=== PATIENT | male | born 1980 | race Caucasian/White ===

== ENCOUNTER 2016-10-08 10:08 | Inpatient (IN) | payer BC ==
--- NOTE | 2016-10-08 10:29 | ER Document Report ---
ED General - General Chief Complaint: Abnormal Lab Results Stated Complaint: POSSIBLE BLOOD SUGAR LEVEL INCREASE Mode of Arrival: Ambulatory Information source: Patient Notes: 36-year-old male history of hypertension who had blood work done at [facility] yesterday was called by myself this morning with critical lab values of glucose 810, sodium 119 and creatinine 3.14, she was instructed to come to the emergency department for evaluation, he admits increased urination not feeling well over the past 2 weeks TRAVEL OUTSIDE OF THE [place] IN LAST 30 DAYS: No - HPI Onset: Other - 2 week duration Onset/Duration: Persistent Quality of pain: Achy Severity: Mild Pain Level: 1 Associated symptoms: Body/muscle aches Exacerbated by: Denies Relieved by: Denies Similar symptoms previously: Yes Recently seen / treated by doctor: Yes - Related Data Allergies/Adverse Reactions: No Known Allergies Allergy (Verified 10/08/16 10:17) Past Medical History - Social History Smoking Status: Never Smoker Cigarette use (# per day): No Chew tobacco use (# tins/day): No Smoking Education Provided: No Family History: Other Patient has suicidal ideation: No Patient has homicidal ideation: No - Past Medical History Cardiac Medical History: Reports: Hx Hypertension Renal/ Medical History: Denies: Hx Peritoneal Dialysis GI Medical History: Reports: Hx Gastroesophageal Reflux Disease, Hx Ulcer - Immunizations Hx Diphtheria, Pertussis, Tetanus Vaccination: No Review of Systems - Review of Systems Notes: REVIEW OF SYSTEMS: CONSTITUTIONAL : Denies fever, chills, or sweats. Denies recent illness. EENT: Denies eye, ear, throat, or mouth pain or symptoms. Denies nasal or sinus congestion or discharge. Denies throat, tongue, or mouth swelling or difficulty swallowing. CARDIOVASCULAR: Denies chest pain. Denies palpitations or racing or irregular heart beat. Denies ankle edema. RESPIRATORY: Denies cough, cold, or chest congestion. Denies shortness of breath, difficulty breathing, or wheezing. GASTROINTESTINAL: Denies abdominal pain or distention. Denies nausea, vomiting , or diarrhea. Denies blood in vomitus, stools, or per rectum. Denies black, tarry stools. Denies constipation. GENITOURINARY: Admits to increased urination MUSCULOSKELETAL: Denies back or neck pain or stiffness. Denies joint pain or swelling. SKIN: Denies rash, lesions or sores. HEMATOLOGIC : Denies easy bruising or bleeding. LYMPHATIC: Denies swollen, enlarged glands. NEUROLOGICAL: Admits to fatigue PSYCHIATRIC: Denies anxiety or stress. Denies depression, suicidal ideation, or homicidal ideation. ALL OTHER SYSTEMS REVIEWED AND NEGATIVE. Dictation was performed using oNoise voice recognition software PHYSICAL EXAMINATION: GENERAL: Well-appearing, well-nourished and in no acute distress. HEAD: Atraumatic, normocephalic. EYES: Pupils equal round and reactive to light, extraocular movements intact, sclera anicteric, conjunctiva are normal. ENT: Nares patent, oropharynx clear without exudates. Moist mucous membranes. NECK: Normal range of motion, supple without lymphadenopathy LUNGS: Breath sounds clear to auscultation bilaterally and equal. No wheezes rales or rhonchi. HEART: Regular rate and rhythm without murmurs ABDOMEN: Soft, nontender, nondistended abdomen. No guarding, no rebound. No masses appreciated. Musculoskeletal: Normal range of motion, no pitting or edema. No cyanosis. NEUROLOGICAL: Cranial nerves grossly intact. Normal speech, normal gait. Normal sensory, motor exams PSYCH: Normal mood, normal affect. SKIN: Warm, Dry, normal turgor, no rashes or lesions noted. Physical Exam - Vital signs Vitals: Temp Pulse Resp BP Pulse Ox 98.2 F 72 16 93/61 L 98 10/08/16 10:19 10/08/16 10:19 10/08/16 10:19 10/08/16 10:19 10/08/16 10:19 Course - Re-evaluation Re-evalutation: 10/08/16 10:28 Patient noted to have abnormal lab values, 10/08/16 11:53 Patient is noted to have blood sugar of 957 with acute renal failure, fluids insulin a been ordered. Patient will be admitted to hospitalist service - Vital Signs Vital signs: Temp Pulse Resp BP Pulse Ox 98.2 F 72 16 93/61 L 98 10/08/16 10:19 10/08/16 10:19 10/08/16 10:19 10/08/16 10:19 10/08/16 10:19 - Laboratory Result Diagrams: 10/08/16 10:48 10/08/16 10:48 Laboratory results interpreted by me: 10/08/16 10/08/16 10/08/16 10:48 10:48 10:48 RBC 4.07 L Hgb 13.1 L Sodium 122.3 L Chloride 81 L Carbon Dioxide 18 L Anion Gap 23 H BUN 55 H Creatinine 2.51 H Est GFR ( Amer) 35 L Est GFR (Non-Af Amer) 29 L Glucose 957 H* Hemoglobin A1c % > 14.0 H Calcium 10.5 H Total Bilirubin 1.9 H Direct Bilirubin 0.8 H Critical Care Note - Critical Care Note Total time excluding time spent on procedures (mins): 34 Comments: 34 minutes of critical care time spent in direct contact evaluating and reevaluating the patient, treating symptoms, reviewing labs and studies and speaking with family and consultants excluding any procedures Discharge - Discharge Clinical Impression: Severe diabetic hypoglycemia, Hyponatremia, Acute renal insufficiency Condition: Serious Disposition: ADMITTED INPATIENT Admitting Provider: Hospitalist Unit Admitted: Telemetry
[2016-10-08 11:04] LABS: ABSOLUTE BASOPHILS # (AUTO) 0.1 10^3/uL (0.0-0.2); ABSOLUTE EOSINOPHILS # (AUTO) 0.1 10^3/uL (0.0-0.6); ABSOLUTE LYMPHOCYTES (AUTO) 1.6 10^3/uL (0.5-4.7); ABSOLUTE MONOCYTES (AUTO) 0.5 10^3/uL (0.1-1.4); ABSOLUTE NEUT (AUTO) 2.8 10^3/uL (1.7-8.2); BASOPHILS % (AUTO) 1.7 % (0-2); EOSINOPHILS % (AUTO) 1.4 % (0-6); HEMATOCRIT 38.2 % (37.9-51.0); HEMOGLOBIN 13.1 g/dL (13.5-17.0); HGB HCT DIFFERENCE 1.1; LYMPHOCYTES % (AUTO) 32.2 % (13-45); MEAN CORPUSCULAR HEMOGLOBIN 32.3 pg (27.0-33.4); MEAN CORPUSCULAR HGB CONC 34.4 g/dL (32.0-36.0); MEAN CORPUSCULAR VOLUME 94 fl (80-97); MONOCYTES % (AUTO) 9.4 % (3-13); RED BLOOD COUNT 4.07 10^6/uL (4.35-5.55); RED CELL DISTRIBUTION WIDTH 12.3 % (11.5-14.0); SEGMENTED NEUTROPHILS % (AUTO) 55.3 % (42-78); VENOUS BLOOD BASE EXCESS -2.5 mmol/L; VENOUS BLOOD HCO3 22.9 mmol/L (20-32); VENOUS BLOOD PCO2 41.9 mmHg (35-63); VENOUS BLOOD PH 7.36 (7.30-7.42); WHITE BLOOD COUNT 5.1 10^3/uL (4.0-10.5)
[2016-10-08 11:23] LABS: ALANINE AMINOTRANSFERASE 62 U/L (21-72); ALBUMIN 4.5 g/dL (3.5-5.0); ALKALINE PHOSPHATASE 113 U/L (38-126); ASPARTATE AMINO TRANSFERASE 46 U/L (17-59); BILIRUBIN,DIRECT 0.8 mg/dL (0.0-0.4); BILIRUBIN,TOTAL 1.9 mg/dL (0.2-1.3); BLOOD UREA NITROGEN 55 mg/dL (7-20); CALCIUM 10.5 mg/dL (8.4-10.2); CREATINE KINASE 89 U/L (55-170); CREATININE RESULT 2.51 mg/dL (0.52-1.25); TOTAL PROTEIN 7.9 g/dL (6.3-8.2)
[2016-10-08 11:40] LABS: CARBON DIOXIDE 18 mmol/L (22-30); CHLORIDE 81 mmol/L (98-107); POTASSIUM 4.4 mmol/L (3.6-5.0); SODIUM 122.3 mmol/L (137-145)
[2016-10-08 11:43] LABS: ANION GAP 23 (5-19)
[2016-10-08 11:45] LABS: GLUCOSE 957 mg/dL (75-110)
[2016-10-08] MEDS ORDERED: INSULIN REG, HUMAN 100 UNIT/ML 3 ML VIAL (PYX) SUBCUT ONE (11:52)
[2016-10-08] MEDS: NORMAL SALINE 1000 ML 1,000 ML IV PRN ×6 (12:20→23:02)
[2016-10-08] MEDS ORDERED: ACETAMINOPHEN 325 MG TABLET PO PRN (12:38)
[2016-10-08] MEDS ORDERED: ZOLPIDEM TARTRATE 5 MG TABLET PO PRN (12:38)
[2016-10-08] MEDS ORDERED: DEXTROSE 40% GEL 15 GM TUBE PO PRN ×4 (12:49→12:53)
[2016-10-08] MEDS ORDERED: GLUCAGON,HUMAN RECOMB 1 MG INJ IM PRN ×2 (12:49→12:53)
[2016-10-08] MEDS ORDERED: DEXTROSE 50%-WATER 25 GM/50 ML DISP.SYRIN IV PRN ×4 (12:49→12:53)
[2016-10-08] MEDS ORDERED: INSULIN LISPRO 100 UNIT/ML 3 ML VIAL SUBCUT PRN (12:49)
[2016-10-08 14:06] LABS: APPEARANCE,URINE CLEAR; BILIRUBIN,URINE NEGATIVE (NEGATIVE); GLUCOSE, URINE >=500 mg/dL (NEGATIVE); KETONES,URINE TRACE mg/dL (NEGATIVE); LEUKOCYTE ESTERASE,URINE NEGATIVE (NEGATIVE); NITRITE,URINE NEGATIVE (NEGATIVE); PROTEIN,URINE NEGATIVE (NEGATIVE); URINE SPECIFIC GRAVITY 1.024; UROBILINOGEN,URINE NEGATIVE mg/dL (<2.0)
--- NOTE | 2016-10-08 14:16 | PDOC H&P ---
History of Present Illness Admission Date/PCP: 10/08/16 12:38 Patient complains of: Muscle weakness, and fatigue. Abnormal outpatient lavs History of Present Illness: ROEL CAMARILLO is a 36 year old male with history of essential hypertension who presented to his primary care provider's office and [place] yesterday for blood work. He states he had not been feeling well for last 2 weeks. He had increasing fatigue, muscle soreness and thirst. He was notified by the primary care provider's office this morning of some critically abnormal lab results and was directed to come to the emergency department on [facility]. He was found to have a blood glucose of over 800, sodium of 118, and elevated BUNs/creatinine. He states he has been drinking excessively because of thirst and has had increased urination. He has no prior history of diabetes mellitus himself. He has no family members immediately who have diabetes mellitus either. He denies any other symptoms. He has had no nausea or vomiting. He denies any new medications. Past Medical History Cardiac Medical History: Reports: Hypertension Pulmonary Medical History: Reports: None EENT Medical History: Reports: None Neurological Medical History: Reports: None Endocrine Medical History: Reports: Obesity Renal/ Medical History: Reports: None GI Medical History: Reports: None, Gastroesophageal Reflux Disease Musculoskeltal Medical History: Reports: None Skin Medical History: Reports: None Psychiatric Medical History: Reports: Alcohol Dependency Traumatic Medical History: Reports: None Hematology: Reports: None Infectious Medical History: Reports: None Past Surgical History Past Surgical History: Reports: None Social History Information Source: Patient Lives with: Alone Smoking Status: Never Smoker Frequency of Alcohol Use: Rare Hx Recreational Drug Use: No Hx Prescription Drug Abuse: No - Advance Directive Resuscitation Status: Full Code Surrogate healthcare decision maker:: Parents are his closest living relatives. Family History Family History: Hypertension Parental Family History Reviewed: Yes Children Family History Reviewed: NA Sibling(s) Family History Reviewed.: Yes Medication/Allergy Home Medications: Metoprolol Tartrate [Lopressor 100 mg Tablet] 100 mg PO Q12 10/08/16 Olmesartan/Amlodipin/Hcthiazid [[id number] 20-5-12.5] 1 tab PO DAILY Allergies/Adverse Reactions: No Known Allergies Allergy (Verified 10/08/16 10:17) Review of Systems Constitutional: PRESENT: fatigue, weakness Eyes: PRESENT: visual disturbances Ears: ABSENT: hearing changes Cardiovascular: ABSENT: chest pain, dyspnea on exertion, edema, orthropnea, palpitations Gastrointestinal: ABSENT: abdominal pain, constipation, diarrhea, hematemesis, hematochezia, nausea, vomiting Genitourinary: ABSENT: dysuria, hematuria Musculoskeletal: ABSENT: joint swelling Integumentary: ABSENT: rash, wounds Neurological: PRESENT: weakness. ABSENT: abnormal gait, abnormal speech, confusion, dizziness, focal weakness, syncope Psychiatric: ABSENT: anxiety, depression, homidical ideation, suicidal ideation Endocrine: PRESENT: polydipsia, polyuria Hematologic/Lymphatic: ABSENT: easy bleeding, easy bruising Physical Exam Vital Signs: Temp Pulse Resp BP Pulse Ox 98.2 F 72 19 114/70 100 10/08/16 10:19 10/08/16 10:19 10/08/16 13:01 10/08/16 13:01 10/08/16 13:01 General appearance: PRESENT: no acute distress, obese, well-developed, well- nourished Head exam: PRESENT: atraumatic Eye exam: PRESENT: conjunctiva pink, EOMI, PERRLA. ABSENT: scleral icterus Ear exam: PRESENT: normal external ear exam Mouth exam: PRESENT: moist, tongue midline Neck exam: ABSENT: carotid bruit, JVD, lymphadenopathy, thyromegaly Respiratory exam: PRESENT: clear to auscultation ara. ABSENT: rales, rhonchi, wheezes Cardiovascular exam: PRESENT: RRR. ABSENT: diastolic murmur, rubs, systolic murmur Pulses: PRESENT: normal dorsalis pedis pul Vascular exam: PRESENT: normal capillary refill GI/Abdominal exam: PRESENT: normal bowel sounds, soft. ABSENT: distended, guarding, mass, organolmegaly, rebound, tenderness Rectal exam: PRESENT: deferred Extremities exam: PRESENT: full ROM. ABSENT: calf tenderness, clubbing, pedal edema Neurological exam: PRESENT: alert, awake, oriented to person, oriented to place , oriented to time, oriented to situation, CN II-XII grossly intact. ABSENT: motor sensory deficit Psychiatric exam: PRESENT: appropriate affect, normal mood. ABSENT: homicidal ideation, suicidal ideation Skin exam: PRESENT: dry, intact, warm. ABSENT: cyanosis, rash Assessment & Plan - Diagnosis (1) New onset type 1 diabetes mellitus, uncontrolled Is this a current diagnosis for this admission?: YesPlan: Patient will be aggressively rehydrated with normal saline. He was given 20 units of IV insulin in the emergency room. Serial BMPs will be obtained. He does not have acidosis the present time or an anion gap. We will start him on Lantus insulin this evening 0.2 units per kilogram. We'll continue Chemstrips every 4 hours as well. Patient will need education by nursing educator and nursing staff regarding testing and medications. (2) Hyponatremia Is this a current diagnosis for this admission?: YesPlan: Secondary to dehydration from hyperglycemia. Will rehydrate with IV normal saline and monitor serial (3) Acute renal insufficiency Is this a current diagnosis for this admission?: YesPlan: Secondary to prerenal conditions of dehydration. We'll avoid nephrotoxic medications and dosages we will continue to monitor BMPs frequently. (4) Essential hypertension Is this a current diagnosis for this admission?: YesPlan: Patient's blood pressures actually mildly hypotensive due to severe dehydration. We will hold antihypertensives for now until he is rehydrated and monitor. (5) Obesity Is this a current diagnosis for this admission?: YesPlan: Patient was counseled - Time Time Spent: 50 to 70 Minutes Critical Time spent with patient: 25-34 minutes Medications reviewed and adjusted accordingly: Yes
[2016-10-08] MEDS ORDERED: ENOXAPARIN SODIUM INJ 40 MG/0.4 ML DISP.SYRIN SUBCUT ONE (14:30)
[2016-10-08 14:31] LABS: ABSOLUTE EOSINOPHILS # (AUTO) 0.1 10^3/uL (0.0-0.6); ABSOLUTE LYMPHOCYTES (AUTO) 1.4 10^3/uL (0.5-4.7); ABSOLUTE MONOCYTES (AUTO) 0.4 10^3/uL (0.1-1.4); ABSOLUTE NEUT (AUTO) 3.5 10^3/uL (1.7-8.2); BASOPHILS % (AUTO) 0.6 % (0-2); HEMATOCRIT 35.5 % (37.9-51.0); HEMOGLOBIN 12.5 g/dL (13.5-17.0); LYMPHOCYTES % (AUTO) 26.2 % (13-45); MEAN CORPUSCULAR HEMOGLOBIN 32.3 pg (27.0-33.4); MEAN CORPUSCULAR HGB CONC 35.1 g/dL (32.0-36.0); MEAN CORPUSCULAR VOLUME 92 fl (80-97); RED BLOOD COUNT 3.86 10^6/uL (4.35-5.55); RED CELL DISTRIBUTION WIDTH 12.3 % (11.5-14.0); SEGMENTED NEUTROPHILS % (AUTO) 64.2 % (42-78); WHITE BLOOD COUNT 5.5 10^3/uL (4.0-10.5)
[2016-10-08 14:46] LABS: ANION GAP 19 (5-19); BLOOD UREA NITROGEN 54 mg/dL (7-20); CALCIUM 9.7 mg/dL (8.4-10.2); CARBON DIOXIDE 20 mmol/L (22-30); CHLORIDE 88 mmol/L (98-107); CREATININE RESULT 2.33 mg/dL (0.52-1.25); POTASSIUM 4.3 mmol/L (3.6-5.0); SODIUM 126.7 mmol/L (137-145)
[2016-10-08 14:57] LABS: GLUCOSE 746 mg/dL (75-110)
[2016-10-08] MEDS ORDERED: INSULIN REG, HUMAN 100 UNIT/ML 3 ML VIAL (PYX) IV ONE (15:30)
[2016-10-08] MEDS ORDERED: NORMAL SALINE 1000 ML 2,000 ML IV ONE (15:30)
[2016-10-08 16:56] LABS: ANION GAP 19 (5-19); BLOOD UREA NITROGEN 46 mg/dL (7-20); CALCIUM 9.4 mg/dL (8.4-10.2); CARBON DIOXIDE 19 mmol/L (22-30); CHLORIDE 95 mmol/L (98-107); CREATININE RESULT 1.91 mg/dL (0.52-1.25); POTASSIUM 3.7 mmol/L (3.6-5.0); SODIUM 132.9 mmol/L (137-145)
[2016-10-08 17:08] LABS: GLUCOSE 600 mg/dL (75-110)
[2016-10-08 20:23] LABS: ANION GAP 16 (5-19); BLOOD UREA NITROGEN 43 mg/dL (7-20); CALCIUM 9.6 mg/dL (8.4-10.2); CARBON DIOXIDE 20 mmol/L (22-30); CHLORIDE 99 mmol/L (98-107); CREATININE RESULT 1.69 mg/dL (0.52-1.25); GLUCOSE 393 mg/dL (75-110); POTASSIUM 3.4 mmol/L (3.6-5.0); SODIUM 135.2 mmol/L (137-145)
[2016-10-08] MEDS: INSULIN LISPRO 100 UNIT/ML 3 ML VIAL SUBCUT PRN (21:05)
[2016-10-08] MEDS: FAMOTIDINE 20 MG TABLET PO SCH (21:10)
[2016-10-08] MEDS ORDERED: INSULIN GLARGINE,HUM.REC.ANLOG 300 UNIT/3 ML INSULN.PEN SUBCUT SCH ×2 (22:00)
[2016-10-09] MEDS: INSULIN LISPRO 100 UNIT/ML 3 ML VIAL SUBCUT PRN ×5 (02:13→22:52)
[2016-10-09 04:48] LABS: ABSOLUTE EOSINOPHILS # (AUTO) 0.1 10^3/uL (0.0-0.6); ABSOLUTE LYMPHOCYTES (AUTO) 2.4 10^3/uL (0.5-4.7); ABSOLUTE MONOCYTES (AUTO) 0.4 10^3/uL (0.1-1.4); ABSOLUTE NEUT (AUTO) 2.2 10^3/uL (1.7-8.2); BASOPHILS % (AUTO) 0.9 % (0-2); EOSINOPHILS % (AUTO) 2.1 % (0-6); HEMATOCRIT 31.2 % (37.9-51.0); HEMOGLOBIN 11.4 g/dL (13.5-17.0); LYMPHOCYTES % (AUTO) 45.8 % (13-45); MEAN CORPUSCULAR HEMOGLOBIN 32.5 pg (27.0-33.4); MEAN CORPUSCULAR HGB CONC 36.3 g/dL (32.0-36.0); MEAN CORPUSCULAR VOLUME 90 fl (80-97); MONOCYTES % (AUTO) 8.5 % (3-13); RED BLOOD COUNT 3.49 10^6/uL (4.35-5.55); RED CELL DISTRIBUTION WIDTH 12.2 % (11.5-14.0); SEGMENTED NEUTROPHILS % (AUTO) 42.7 % (42-78); WHITE BLOOD COUNT 5.3 10^3/uL (4.0-10.5)
[2016-10-09 05:06] LABS: ANION GAP 13 (5-19); BLOOD UREA NITROGEN 35 mg/dL (7-20); CALCIUM 10.1 mg/dL (8.4-10.2); CARBON DIOXIDE 23 mmol/L (22-30); CHLORIDE 105 mmol/L (98-107); CREATININE RESULT 1.52 mg/dL (0.52-1.25); GLUCOSE 196 mg/dL (75-110); SODIUM 141.1 mmol/L (137-145)
[2016-10-09] MEDS: NORMAL SALINE 1000 ML 1,000 ML IV PRN ×3 (05:14→19:52)
[2016-10-09 05:46] LABS: POTASSIUM 3.3 mmol/L (3.6-5.0)
[2016-10-09] MEDS: FAMOTIDINE 20 MG TABLET PO SCH ×2 (09:23→22:54)
[2016-10-09] MEDS: POTASSIUM CHLORIDE 10 MEQ TABLET.SA PO SCH ×2 (09:23→22:53)
[2016-10-09] MEDS: ENOXAPARIN SODIUM INJ 40 MG/0.4 ML DISP.SYRIN SUBCUT SCH (09:24)
--- NOTE | 2016-10-09 11:58 | PDOC PROGRESS REPORT ---
Subjective Progress Note for:: 10/09/16 Subjective:: Patient is seen on morning rounds. He is presently resting comfortably in bed eating breakfast. He denies any difficulties overnight. He denies any chest pain, shortness breath or dyspnea. He denies any nausea, vomiting, or abdominal pain. He denies any arthralgias or myalgias. He states he slept well. He states he overall feels much better. Rest of the review of systems are negative at this time. Physical Exam Vital Signs: Temp Pulse Resp BP Pulse Ox 98.4 F 88 19 115/69 100 10/09/16 07:39 10/09/16 07:39 10/09/16 07:39 10/09/16 07:39 10/09/16 07:39 Intake & Output 10/08/16 10/09/16 10/10/16 06:59 06:59 06:59 Intake Total 3258 Output Total 700 Balance 2558 Weight 113.1 kg General appearance: PRESENT: no acute distress, obese, well-developed, well- nourished Head exam: PRESENT: atraumatic, normocephalic Eye exam: PRESENT: conjunctiva pink, EOMI, PERRLA. ABSENT: scleral icterus Ear exam: PRESENT: normal external ear exam Mouth exam: PRESENT: moist, tongue midline Neck exam: ABSENT: carotid bruit, JVD, lymphadenopathy, thyromegaly Respiratory exam: PRESENT: clear to auscultation ara. ABSENT: rales, rhonchi, wheezes Cardiovascular exam: PRESENT: RRR. ABSENT: diastolic murmur, rubs, systolic murmur Pulses: PRESENT: normal dorsalis pedis pul Vascular exam: PRESENT: normal capillary refill GI/Abdominal exam: PRESENT: normal bowel sounds, soft. ABSENT: distended, guarding, mass, organolmegaly, rebound, tenderness Rectal exam: PRESENT: deferred Extremities exam: PRESENT: full ROM. ABSENT: calf tenderness, clubbing, pedal edema Musculoskeletal exam: PRESENT: ambulatory, full ROM, normal inspection, tenderness Neurological exam: PRESENT: alert, awake, oriented to person, oriented to place , oriented to time, oriented to situation, CN II-XII grossly intact. ABSENT: motor sensory deficit Psychiatric exam: PRESENT: appropriate affect, normal mood. ABSENT: homicidal ideation, suicidal ideation Skin exam: PRESENT: dry, intact, warm. ABSENT: cyanosis, rash Results Laboratory Results: 10/09/16 04:13 10/09/16 04:13 10/08/16 10/08/16 10/08/16 13:10 13:59 13:59 WBC 5.5 RBC 3.86 L Hgb 12.5 L Hct 35.5 L MCV 92 MCH 32.3 MCHC 35.1 RDW 12.3 Plt Count 128 L Seg Neutrophils % 64.2 Lymphocytes % 26.2 Monocytes % 8.0 Eosinophils % 1.0 Basophils % 0.6 Absolute Neutrophils 3.5 Absolute Lymphocytes 1.4 Absolute Monocytes 0.4 Absolute Eosinophils 0.1 Absolute Basophils 0.0 Sodium 126.7 L Potassium 4.3 Chloride 88 L Carbon Dioxide 20 L Anion Gap 19 BUN 54 H Creatinine 2.33 H Est GFR ( Amer) 38 L Est GFR (Non-Af Amer) 32 L Glucose 746 H* Calcium 9.7 Urine Color STRAW Urine Appearance CLEAR Urine pH 5.0 Ur Specific [place] 1.024 Urine Protein NEGATIVE Urine Glucose (UA) >=500 H Urine Ketones TRACE H Urine Blood SMALL H Urine Nitrite NEGATIVE Ur Leukocyte Esterase NEGATIVE Urine WBC (Auto) 0 10/08/16 10/08/16 10/09/16 16:15 19:50 04:13 WBC RBC Hgb Hct MCV MCH MCHC RDW Plt Count Seg Neutrophils % Lymphocytes % Monocytes % Eosinophils % Basophils % Absolute Neutrophils Absolute Lymphocytes Absolute Monocytes Absolute Eosinophils Absolute Basophils Sodium 132.9 L 135.2 L 141.1 Potassium 3.7 3.4 L 3.3 L Chloride 95 L 99 105 Carbon Dioxide 19 L 20 L 23 Anion Gap 19 16 13 BUN 46 H 43 H 35 H Creatinine 1.91 H 1.69 H 1.52 H Est GFR ( Amer) 48 L 55 L > 60 Est GFR (Non-Af Amer) 40 L 46 L 52 L Glucose 600 H* 393 H 196 H Calcium 9.4 9.6 10.1 Urine Color Urine Appearance Urine pH Ur Specific [place] Urine Protein Urine Glucose (UA) Urine Ketones Urine Blood Urine Nitrite Ur Leukocyte Esterase Urine WBC (Auto) 10/09/16 04:13 WBC 5.3 RBC 3.49 L Hgb 11.4 L Hct 31.2 L MCV 90 MCH 32.5 MCHC 36.3 H RDW 12.2 Plt Count 133 L Seg Neutrophils % 42.7 Lymphocytes % 45.8 H Monocytes % 8.5 Eosinophils % 2.1 Basophils % 0.9 Absolute Neutrophils 2.2 Absolute Lymphocytes 2.4 Absolute Monocytes 0.4 Absolute Eosinophils 0.1 Absolute Basophils 0.0 Sodium Potassium Chloride Carbon Dioxide Anion Gap BUN Creatinine Est GFR ( Amer) Est GFR (Non-Af Amer) Glucose Calcium Urine Color Urine Appearance Urine pH Ur Specific [place] Urine Protein Urine Glucose (UA) Urine Ketones Urine Blood Urine Nitrite Ur Leukocyte Esterase Urine WBC (Auto) Assessment & Plan - Diagnosis (1) New onset type 1 diabetes mellitus, uncontrolled Is this a current diagnosis for this admission?: YesPlan: Patient was marketed improvement of blood glucose from 950 yesterday to 190s this morning with addition of Lantus insulin 20 units last evening. We'll bump his dose of 25 units and continue sliding scale coverage. He will have diabetic education and dietary education prior to discharge home hopefully tomorrow. (2) Hyponatremia Is this a current diagnosis for this admission?: YesPlan: Resolved with IV normal saline hydration secondary to hyperglycemia and dehydration. (3) Acute renal insufficiency Is this a current diagnosis for this admission?: YesPlan: Resolving with IV hydration secondary again to dehydration and hyperglycemia. (4) Essential hypertension Is this a current diagnosis for this admission?: YesPlan: We'll continue to hold oral antihypertensives he is normotensive present time. (5) Obesity Is this a current diagnosis for this admission?: YesPlan: Patient was counseled regarding dietary modifications and increasing exercise. - Time Time Spent with patient: 25-34 minutes Critical Time spent with patient: 15-24 minutes Medications reviewed and adjusted accordingly: Yes
[2016-10-09] MEDS ORDERED: INSULIN GLARGINE,HUM.REC.ANLOG 300 UNIT/3 ML INSULN.PEN SUBCUT SCH (22:00)
[2016-10-10] MEDS: NORMAL SALINE 1000 ML 1,000 ML IV PRN (03:01)
[2016-10-10 06:33] LABS: BLOOD UREA NITROGEN 18 mg/dL (7-20); CALCIUM 10.1 mg/dL (8.4-10.2); CREATININE RESULT 1.27 mg/dL (0.52-1.25); GLUCOSE 198 mg/dL (75-110)
[2016-10-10 06:34] LABS: ANION GAP 12 (5-19); CARBON DIOXIDE 21 mmol/L (22-30); CHLORIDE 109 mmol/L (98-107); CHOLESTEROL 264.76 mg/dL (0-200); Direct HDL 22 mg/dL (>40); MAGNESIUM 2.3 mg/dL (1.6-2.3); POTASSIUM 3.6 mmol/L (3.6-5.0); SODIUM 142.4 mmol/L (137-145)
[2016-10-10 07:04] LABS: DIRECT LDL < 30 mg/dL (<100); TRIGLYCERIDES 1950 mg/dL (<150)
[2016-10-10] MEDS ORDERED: INSULIN GLARGINE,HUM.REC.ANLOG 300 UNIT/3 ML INSULN.PEN SUBCUT SCH ×2 (07:46→13:57)
[2016-10-10] MEDS: ENOXAPARIN SODIUM INJ 40 MG/0.4 ML DISP.SYRIN SUBCUT SCH (07:59)
[2016-10-10] MEDS: INSULIN LISPRO 100 UNIT/ML 3 ML VIAL SUBCUT PRN ×4 (08:03→23:06)
[2016-10-10] MEDS: FAMOTIDINE 20 MG TABLET PO SCH ×2 (10:12→23:06)
[2016-10-10] MEDS: METOPROLOL TARTRATE 50 MG TABLET PO SCH ×2 (10:12→23:06)
--- NOTE | 2016-10-10 15:05 | PDOC PROGRESS REPORT ---
Subjective Progress Note for:: 10/10/16 Subjective:: Patient is seen on morning rounds. He is presently resting comfortably in bed eating breakfast. He denies any difficulties overnight. He denies any chest pain, shortness breath or dyspnea. He denies any nausea, vomiting, or abdominal pain. He denies any arthralgias or myalgias. He states he slept well. He states he overall feels much better. Rest of the review of systems are negative at this time. Physical Exam Vital Signs: Temp Pulse Resp BP Pulse Ox 98.9 F 84 18 127/79 H 100 10/10/16 11:38 10/10/16 11:38 10/10/16 11:38 10/10/16 11:38 10/10/16 11:38 Intake & Output 10/09/16 10/10/16 10/11/16 06:59 06:59 06:59 Intake Total 3258 5707 460 Output Total 700 700 Balance 2558 5007 460 Weight 113.1 kg 114.7 kg General appearance: PRESENT: no acute distress, obese, well-developed, well- nourished Head exam: PRESENT: atraumatic, normocephalic Eye exam: PRESENT: conjunctiva pink, EOMI, PERRLA. ABSENT: scleral icterus Ear exam: PRESENT: normal external ear exam Mouth exam: PRESENT: moist, tongue midline Neck exam: ABSENT: carotid bruit, JVD, lymphadenopathy, thyromegaly Respiratory exam: PRESENT: clear to auscultation ara. ABSENT: rales, rhonchi, wheezes Cardiovascular exam: PRESENT: RRR. ABSENT: diastolic murmur, rubs, systolic murmur Pulses: PRESENT: normal dorsalis pedis pul Vascular exam: PRESENT: normal capillary refill GI/Abdominal exam: PRESENT: normal bowel sounds, soft, tenderness Rectal exam: PRESENT: deferred Extremities exam: PRESENT: full ROM. ABSENT: calf tenderness, clubbing, pedal edema Musculoskeletal exam: PRESENT: ambulatory, full ROM, normal inspection Neurological exam: PRESENT: alert, awake, oriented to person, oriented to place , oriented to time, oriented to situation, CN II-XII grossly intact. ABSENT: motor sensory deficit Psychiatric exam: PRESENT: appropriate affect, normal mood. ABSENT: homicidal ideation, suicidal ideation Skin exam: PRESENT: dry, intact, warm. ABSENT: cyanosis, rash Results Laboratory Results: 10/09/16 04:13 10/10/16 05:49 10/10/16 05:49 Sodium 142.4 Potassium 3.6 Chloride 109 H Carbon Dioxide 21 L Anion Gap 12 BUN 18 Creatinine 1.27 H Est GFR ( Amer) > 60 Est GFR (Non-Af Amer) > 60 Glucose 198 H Calcium 10.1 Magnesium 2.3 Triglycerides 1950 H Cholesterol 264.76 H LDL Cholesterol Direct < 30 VLDL Cholesterol UNABLE TO CALCULATE HDL Cholesterol 22 L Assessment & Plan - Diagnosis (1) New onset type 1 diabetes mellitus, uncontrolled Is this a current diagnosis for this admission?: YesPlan: Blood sugars are now in the 300s , will increase lantus to 35 units daily. He is awaiting diabetic education and dietary education (2) Hyponatremia Is this a current diagnosis for this admission?: YesPlan: Resolved with IV normal saline hydration secondary to hyperglycemia and dehydration. (3) Acute renal insufficiency Is this a current diagnosis for this admission?: YesPlan: Resolving with IV hydration secondary again to dehydration and hyperglycemia. (4) Obesity Is this a current diagnosis for this admission?: YesPlan: Patient was counseled regarding dietary modifications and increasing exercise. (5) Essential hypertension Is this a current diagnosis for this admission?: YesPlan: Restart lopressor at half dose. Add NURA if blood pressure requires (6) Hypertriglyceridemia Is this a current diagnosis for this admission?: YesPlan: Will start statin - Time Time Spent with patient: 25-34 minutes Critical Time spent with patient: 15-24 minutes Medications reviewed and adjusted accordingly: Yes Anticipated discharge: Home Within: within 24 hours
[2016-10-10] MEDS ORDERED: SIMVASTATIN 40 MG TABLET PO SCH (22:00)
[2016-10-11 06:20] LABS: ANION GAP 11 (5-19); BLOOD UREA NITROGEN 17 mg/dL (7-20); CALCIUM 10.4 mg/dL (8.4-10.2); CARBON DIOXIDE 23 mmol/L (22-30); CHLORIDE 107 mmol/L (98-107); CREATININE RESULT 1.13 mg/dL (0.52-1.25); GLUCOSE 189 mg/dL (75-110); POTASSIUM 3.7 mmol/L (3.6-5.0); SODIUM 141.2 mmol/L (137-145)
[2016-10-11] MEDS: ENOXAPARIN SODIUM INJ 40 MG/0.4 ML DISP.SYRIN SUBCUT SCH (07:38)
[2016-10-11] MEDS: INSULIN LISPRO 100 UNIT/ML 3 ML VIAL SUBCUT PRN ×2 (07:46→12:46)
[2016-10-11] MEDS: METOPROLOL TARTRATE 50 MG TABLET PO SCH (10:02)
[2016-10-11] MEDS: FAMOTIDINE 20 MG TABLET PO SCH (10:02)
[2016-10-11 13:40] VITALS: BP 110/50
--- NOTE | 2016-10-11 17:11 | PDOC DISCHARGE SUMMARY ---
General - Admit/Disc Date/PCP Admission Date/Primary Care Provider: 10/08/16 12:38 Dr. French in [facility] Discharge Date: 10/11/16 - Discharge Diagnosis (1) Diabetes mellitus type 2 in obese Is this a current diagnosis for this admission?: Yes (2) Essential hypertension Is this a current diagnosis for this admission?: Yes (3) Hypertriglyceridemia Is this a current diagnosis for this admission?: Yes (4) Hyponatremia Is this a current diagnosis for this admission?: Yes (5) Obesity Is this a current diagnosis for this admission?: Yes - Additional Information Resuscitation Status: Full Code Discharge Diet: Diabetic Discharge Activity: Activity As Tolerated, Balance Activity w/Rest Home Medications: Blood Sugar Diagnostic [Test Strips] 1 each ASDIR PRN #100 strip 10/11/16 Blood-Glucose Meter [Blood Glucose Monitoring] 1 each ASDIR PRN #1 each 10/11 Insulin Glargine,Hum.rec.anlog [Lantus Insulin 100 Unit/mL] 35 unit SUBCUT QHS # 3 insuln.pen 10/11/16 Lancets 1 each ASDIR PRN #100 each 10/11/16 Metoprolol Tartrate [Lopressor 50 mg Tablet] 50 mg PO Q12 #60 tablet 10/11/16 Pen Needle, Diabetic [Pen Needle] 1 each ASDIR PRN #200 dis.needle 10/11/16 Simvastatin [Zocor 40 mg Tablet] 40 mg PO QHS #30 tablet 10/11/16 History of Present Illness Patient complains of: Muscle weakness, and fatigue. Abnormal outpatient labs History of Present Illness: ROEL CAMARILLO is a 36 year old male with history of essential hypertension who presented to his primary care provider's office and [place] yesterday for blood work. He states he had not been feeling well for last 2 weeks. He had increasing fatigue, muscle soreness and thirst. He was notified by the primary care provider's office this morning of some critically abnormal lab results and was directed to come to the emergency department on [facility]. He was found to have a blood glucose of over 800, sodium of 118, and elevated BUNs/creatinine. He states he has been drinking excessively because of thirst and has had increased urination. He has no prior history of diabetes mellitus himself. He has no family members immediately who have diabetes mellitus either. He denies any other symptoms. He has had no nausea or vomiting. He denies any new medications. Hospital Course Hospital Course: The patient was admitted to continuous telemetry unit. The patient was aggressively hydrated. With hydration creatinine and sodium normalized. The patient was mildly acidotic with a mild gap which immediately closed. Trace ketosis. Patient was started on basal Lantus and Novolog coverage. Patient received diabetes education including insulin administration, glucose monitoring , and diet education. Patient noted relief of symptoms. 10/08/16 10/11/16 10:48 05:22 Creatinine 2.51 H 1.13 10/08/16 10/08/16 10/08/16 10:48 10:48 12:47 Sodium 122.3 L POC Glucose > 550 H* Hemoglobin A1c % > 14.0 H Triglycerides Cholesterol HDL Cholesterol 10/10/16 10/11/16 10/11/16 05:49 05:22 05:22 Sodium 141.2 POC Glucose 188 H Hemoglobin A1c % Triglycerides 1950 H Cholesterol 264.76 H HDL Cholesterol 22 L Physical Exam Vital Signs: Temp Pulse Resp BP Pulse Ox 98.6 F 92 16 110/50 L 100 10/11/16 13:38 10/11/16 13:38 10/11/16 13:38 10/11/16 13:38 10/11/16 13:38 Intake & Output 10/09/16 10/10/16 10/11/16 23:59 23:59 23:59 Intake Total 5530 3940 1201 Output Total 1100 300 Balance 4430 3640 1201 Weight 113.1 kg 114.7 kg 114 kg General appearance: PRESENT: no acute distress, well-developed, well-nourished Head exam: PRESENT: atraumatic, normocephalic Eye exam: PRESENT: conjunctiva pink, EOMI, PERRLA. ABSENT: scleral icterus Ear exam: PRESENT: normal external ear exam Mouth exam: PRESENT: moist, tongue midline Neck exam: ABSENT: carotid bruit, JVD, lymphadenopathy, thyromegaly Respiratory exam: PRESENT: clear to auscultation ara. ABSENT: rales, rhonchi, wheezes Cardiovascular exam: PRESENT: RRR. ABSENT: diastolic murmur, rubs, systolic murmur Pulses: PRESENT: normal dorsalis pedis pul Vascular exam: PRESENT: normal capillary refill GI/Abdominal exam: PRESENT: normal bowel sounds, soft. ABSENT: distended, guarding, mass, organolmegaly, rebound, tenderness Rectal exam: PRESENT: deferred Extremities exam: PRESENT: full ROM. ABSENT: calf tenderness, clubbing, pedal edema Neurological exam: PRESENT: alert, awake, oriented to person, oriented to place , oriented to time, oriented to situation, CN II-XII grossly intact. ABSENT: motor sensory deficit Psychiatric exam: PRESENT: appropriate affect, normal mood. ABSENT: homicidal ideation, suicidal ideation Skin exam: PRESENT: dry, intact, warm. ABSENT: cyanosis, rash Results Laboratory Results: 10/09/16 04:13 10/11/16 05:22 10/11/16 05:22 Sodium 141.2 Potassium 3.7 Chloride 107 Carbon Dioxide 23 Anion Gap 11 BUN 17 Creatinine 1.13 Est GFR ( Amer) > 60 Est GFR (Non-Af Amer) > 60 Glucose 189 H Calcium 10.4 H Qualifiers [place] BEING DISCHARGED WITH ANY OF THE FOLLOWING DIAGNOSIS?: No Plan Discharge Plan: Follow with primary care provider within one week for hospital follow-up. Time Spent: Less than 30 Minutes
== END 2016-10-11 14:24 | disposition home or self-care (01) | DRG 638 ==
LOC: ER 10:08 → EH 12:38 → UNDOADMIN 12:58 → 3S 15:54
PROVIDERS: ADMIT Emergency Medicine; ATTEND Emergency Medicine
DX: E10.65 Type 1 diabetes mellitus with hyperglycemia (principal); N17.9 Acute kidney failure, unspecified; E87.1 Hypo-osmolality and hyponatremia; E66.9 Obesity, unspecified; Z68.35 Body mass index [BMI] 35.0-35.9, adult; I10 Essential (primary) hypertension; E78.1 Pure hyperglyceridemia; K21.9 Gastro-esophageal reflux disease without esophagitis; F10.20 Alcohol dependence, uncomplicated; E86.0 Dehydration; Z60.2 Problems related to living alone; Z79.899 Other long term (current) drug therapy; Z82.49 Family history of ischemic heart disease and other diseases of the circulatory system
CPT/HCPCS: 36415; 80048; 80053; 80061; 81001; 82550; 82803; 82962; 83036; 83735; 85025; 99285; J1650; J1815; J3490; J7030

== ENCOUNTER → 2017-06-09 | Outpatient (CLI) | payer BC ==
--- NOTE | 2017-06-09 16:23 | RADIOLOGY REPORT (SQ) ---
EXAM DESCRIPTION: NM PARATHYROID IMAGING COMPLETED DATE/TIME: 06/09/2017 3:14 pm REASON FOR STUDY: E83.52 HYPERCALCEMIA E83.52 HYPERCALCEMIA COMPARISON: None. RADIONUCLIDE AND DOSE: 21.6 millicuries Tc-99m Sestamibi. The route of agent administration: Intravenous ADDITIONAL DRUGS AND DOSES: None. TECHNIQUE: Early and delayed images of the neck acquired following radionuclide administration. LIMITATIONS: None. FINDINGS: Thyroid: Normal size. Homogeneous activity. Normal washout. No focal lesions. Parathyroid: No retained activity in the thyroid or elsewhere in the neck to indicate a parathyroid a denoma. Other: No other significant findings. IMPRESSION: NORMAL STUDY. NO EVIDENCE OF PARATHYROID ADENOMA. TECHNICAL DOCUMENTATION: JOB ID: [id number] [employer]- All Rights Reserved
== END ==
LOC: RAD 13:07
PROVIDERS: ATTEND Physician Assistant
DX: E83.52 Hypercalcemia (principal)
CPT/HCPCS: 78070; A9500; Q9969